=== PATIENT | male | born 1995 | race Two or more races ===

== ENCOUNTER 2017-10-09 18:01 | Emergency (ER) | payer OTHER ==
[~2017-10-09] VITALS: Ht 167.6 cm; Wt 70.0 kg
[2017-10-09 18:03] VITALS: BP 132/82
[2017-10-09] MEDS ORDERED: SODIUM CHLORIDE FLUSH 10ML SYR IVF ONE (19:00)
[2017-10-09] MEDS ORDERED: OMNIPAQUE 350 MG/ML, 100ML BOTTLE ONE (20:26)
== END 2017-10-09 21:51 | disposition home or self-care (01) ==
LOC: ED 19:03
DX: S30.1XXA Contusion of abdominal wall, initial encounter (principal); S60.221A Contusion of right hand, initial encounter; S80.01XA Contusion of right knee, initial encounter; S39.92XA Unspecified injury of lower back, initial encounter; R07.89 Other chest pain; V03.99XA Pedestrian with other conveyance injured in collision with car, pick-up truck or van, unspecified whether traffic or nontraffic accident, initial encounter; Y93.89 Activity, other specified; Y92.89 Other specified places as the place of occurrence of the external cause; Y99.8 Other external cause status
CPT/HCPCS: 71020; 72020; 72050; 73110; 73130; 74177; 99284; Q9967

== ENCOUNTER 2017-10-23 18:01 | Emergency (ER) | payer OTHER ==
[~2017-10-23] VITALS: Ht 167.6 cm; Wt 71.8 kg
[2017-10-23 18:19] VITALS: BP 118/76
[2017-10-23] MEDS ORDERED: ACETAMINOPHEN 325 MG TABLET ONE (18:41)
[2017-10-23] MEDS ORDERED: ONDANSETRON ODT 4 MG ONE (18:41)
[2017-10-23] MEDS ORDERED: ACETAMINOPHEN 325 MG TABLET PO ONE (19:00)
[2017-10-23] MEDS ORDERED: ONDANSETRON ODT 4 MG PO ONE (19:00)
[2017-10-23 19:09] LABS: RAPID INFLUENZA A POSITIVE (Negative); RAPID INFLUENZA B Negative (Negative)
== END 2017-10-23 19:39 | disposition home or self-care (01) ==
LOC: ED 19:34
DX: J09.X2 Influenza due to identified novel influenza A virus with other respiratory manifestations (principal); F17.210 Nicotine dependence, cigarettes, uncomplicated
CPT/HCPCS: 71020; 87400; 99285; Q0162

== ENCOUNTER 2020-05-05 11:03 | Emergency (ER) | payer SELFPAY ==
[~2020-05-05] VITALS: Ht 167.6 cm; Wt 80.0 kg
--- NOTE | 2020-05-05 11:25 | NUR ---
PT STATES HE TOOK ABOUT 20 TABLETS, 50 MG, OF ZOLOFT AT 430 AM. PT STATES "I DONT KNOW WHY I TOOK ALL THE PILLS" PT IS ANXIOUS. A&OX4.
[2020-05-05] MEDS ORDERED: ONDANSETRON 2MG/ML, 2ML IVPush ONE (11:30)
[2020-05-05] MEDS ORDERED: LORazepam 2 MG/ML, 1ML IVPush ONE (11:30)
--- NOTE | 2020-05-05 11:39 | NUR ---
TASK RN. IV PLACED PER HANNA SILVA WHO WAS AT BEDSIDE FOR PT EVAL. LABS DRAWN. PRIMARY RN TAYLOR REMAINS AT BEDSIDE FOR PT CHECK IN
[2020-05-05 11:53] LABS: BASOPHILS # (AUTO) 0.06 x10^3/uL (0-0.1); BASOPHILS % (AUTO) 1 % (0-1); EOSINOPHILS # (AUTO) 0.26 x10^3/uL (0-0.4); EOSINOPHILS % (AUTO) 3 % (1-7); LYMPHOCYTES # (AUTO) 2.72 x10^3/uL (1-3.4); LYMPHOCYTES % (AUTO) 32 % (22-44); MD NO; MEAN CORPUSCULAR HEMOGLOBIN 30.3 pg (27.5-34.5); MEAN CORPUSCULAR HGB CONC 33.3 g/dL (33.2-36.2); MEAN PLATELET VOLUME 7.7 fL (7.4-10.4); MONOCYTES % (AUTO) 11 % (2-9); NEUTROPHILS % (AUTO) 54 % (42-75); PLATELET COUNT 359 x10^3/uL (130-400); RED BLOOD COUNT 5.57 x10^6/uL (4.38-5.82); RED CELL DISTRIBUTION WIDTH 13.7 % (9.4-14.8)
[2020-05-05 12:00] LABS: ALBUMIN 4.5 g/dL (3.4-5.0); ANION GAP 10 mmol/L (5-15); CALCIUM 9.6 mg/dL (8.5-10.1); CHLORIDE 109 mmol/L (98-107)
[2020-05-05 12:03] LABS: ALANINE AMINOTRANSFERASE 36 U/L (12-78); ALKALINE PHOSPHATASE 93 U/L (45-117); BILIRUBIN,TOTAL 0.3 mg/dL (0.2-1.0); CREATININE 1.07 mg/dL (0.7-1.3); TOTAL PROTEIN 8.7 g/dL (6.4-8.2)
[2020-05-05] MEDS ORDERED: LORazepam 2 MG/ML, 1ML ONE (12:03)
[2020-05-05] MEDS ORDERED: ONDANSETRON 2MG/ML, 2ML ONE (12:03)
[2020-05-05 12:04] LABS: SALICYLATE LEVEL < 1.7 mg/dL (2.8-20.0)
--- NOTE | 2020-05-05 12:17 | NUR ---
MEDICATED FOR ANXIETY AND NAUSEA PER ORDERS.
--- NOTE | 2020-05-05 12:38 | NUR ---
PHONE W SISTER TO TAKE HOME. SITTER PRESENT. PT MONITERED IN SECURE ROOM. PT WANTS TO GO HOME.
--- NOTE | 2020-05-05 13:46 | NUR ---
MALORIE RN: CARLO CONTENT ENGINEER AT BEDSIDE TO GUILLAUME PT.
--- NOTE | 2020-05-05 14:02 | NUR ---
REPORT TO [facility].
--- NOTE | 2020-05-05 14:18 | NUR ---
Patient/Caregiver given discharge instructions and they have confirmed that they understand the instructions. Patient ambulatory with steady gait.
[2020-05-05 14:25] VITALS: BP 122/85
== END 2020-05-05 14:37 | disposition home or self-care (01) ==
LOC: ED 12:56
DX: T14.91XA Suicide attempt, initial encounter (principal); F33.9 Major depressive disorder, recurrent, unspecified; R94.31 Abnormal electrocardiogram [ECG] [EKG]; X83.8XXA Intentional self-harm by other specified means, initial encounter; Y93.9 Activity, unspecified; Y92.89 Other specified places as the place of occurrence of the external cause; Y99.8 Other external cause status
CPT/HCPCS: 36415; 80053; 80307; 85025; 93005; 96374; 96375; 99284; J2060; J2405